=== PATIENT | male | born 1990 | race Hispanic/Latino ===

== ENCOUNTER 2021-08-04 23:52 | Emergency (ER) | payer BC, SELFPAY ==
[2021-08-05] MEDS ORDERED: Dexamethasone 10 MG/ML VIAL ONE (02:57)
[2021-08-05] MEDS ORDERED: Ibuprofen 200 MG TAB ONE (02:58)
== END 2021-08-05 03:03 | disposition home or self-care (01) ==
LOC: CSHERS 23:52
DX: J02.9 Acute pharyngitis, unspecified (principal)
CPT/HCPCS: 87081; 87430; 99283; J1100